=== PATIENT | female | born 1975 | race Hispanic/Latino ===

== ENCOUNTER 2021-08-15 06:23 | Day surgery (SDC) | payer BC ==
[2021-08-13 15:02] LABS: BASOPHILS % (AUTO) 0.6 % (0.0-5.0); EOSINOPHILS % (AUTO) 0.1 % (0.0-8.0); HEMATOCRIT 44.5 % (36-48); MEAN CORPUSCULAR HEMOGLOBIN 26.8 pg (27.0-33.0); MEAN CORPUSCULAR HGB CONC 32.1 g/dL (32.0-36.0); MEAN CORPUSCULAR VOLUME 83.5 fL (79-99); MONOCYTES % (AUTO) 2.8 % (3.0-13.0); NEUTROPHILS % (AUTO) 75.1 % (40.0-77.0); PLATELET COUNT (AUTO) 240 K/uL (130-400); RED BLOOD CELL COUNT(AUTO) 5.33 MIL/uL (4.00-5.50); WHITE BLOOD COUNT (AUTO) 8.2 K/uL (4.8-10.8)
[2021-08-13 15:17] LABS: INR 1.14 (0.85-1.15); PROTHROMBIN TIME 12.3 SEC (9.6-11.6)
[2021-08-13 15:19] LABS: ALBUMIN 3.9 g/dL (3.5-5.0); BILIRUBIN,TOTAL 0.3 mg/dL (0.2-1.0); CREATININE 0.7 mg/dL (0.5-1.5); PARTIAL THROMBOPLASTIN TIME 28.1 SEC (26.3-35.5); POTASSIUM 4.1 mmol/L (3.5-5.1); TOTAL PROTEIN, SERUM 6.6 g/dL (6.0-8.3)
[2021-08-13 15:53] LABS: PLATELET MORPHOLOGY LARGE PLTS PRESENT
[2021-08-14 13:20] VITALS: BP 105/49
[~2021-08-15] VITALS: Ht 152.4 cm; Wt 64.9 kg
[2021-08-15] VITALS (17 sets, daily range): BP systolic 103–124; BP diastolic 52–70
[2021-08-15] MEDS: CEFAZOLIN SODIUM 1 GM VIAL IVP SCH ×2 (06:00→08:02)
[~2021-08-15 06:23] MED LIST: ESCI20TA38 PO; HYDR-3422 PO
[2021-08-15] MEDS ORDERED: LACTATED RINGERS 1000ML 1,000 ML IV ONE (06:32)
[2021-08-15] MEDS ORDERED: LIDOCAINE 1%-EPI 1:100,000 20 ML VIAL IJ ONE ×2 (06:40→09:08)
[2021-08-15] MEDS ORDERED: FENTANYL CITRATE PF 50 MCG/1 ML 2ML VIAL ONE ×2 (07:37→07:50)
[2021-08-15] MEDS ORDERED: MIDAZOLAM HCL 1 MG/ML 2ML VIAL ONE (07:37)
[2021-08-15] MEDS ORDERED: ROCURONIUM 10MG/1ML SYR 10 MG/ML ML ONE (07:37)
[2021-08-15] MEDS ORDERED: LIDOCAINE PF 100MG/5ML (2%) SYRINGE 5ML ONE (07:37)
[2021-08-15] MEDS ORDERED: PROPOFOL 10 MG/ML 20ML VIAL IV ONE (07:37)
[2021-08-15] MEDS ORDERED: BACITRACIN 28.4 GM OINT TP ONE (07:37)
[2021-08-15] MEDS ORDERED: EPHEDRINE SULFATE 50 MG/ML AMPULE ONE (08:02)
[2021-08-15] MEDS ORDERED: ONDANSETRON 4MG INJ ONE ×2 (08:07→08:50)
[2021-08-15] MEDS ORDERED: DEXAMETHASONE SOD PHOSPHATE 4 MG/ML 1ML VIAL ONE (08:25)
[2021-08-15] MEDS ORDERED: GLYCOPYRROLATE 1 MG/5 ML SYRINGE ONE (08:34)
[2021-08-15] MEDS ORDERED: NEOSTIGMINE 5MG/5ML SYR IV ONE (08:35)
== END 2021-08-15 10:15 | disposition home or self-care (01) ==
LOC: DAH 06:23
PROVIDERS: ATTEND Otolaryngology Plastic Surgery within the Head & Neck
DX: D16.4 Benign neoplasm of bones of skull and face (principal); F32.9 Major depressive disorder, single episode, unspecified; Z79.01 Long term (current) use of anticoagulants; Z79.899 Other long term (current) drug therapy; Z20.822 Contact with and (suspected) exposure to COVID-19
CPT/HCPCS: 21299; 36415 ×2; 71045; 80053; 84703; 85025; 85610; 85730; 87635; 93005; A4215; A4221; A4222; A4223; A4335; A4600; A4606; A4663; A4930; A6260; C9803; J0690; J1100; J2001; J2250; J2405 ×2; J2704; J2710; J3010 ×2; J3490 ×3; J7120